=== PATIENT | female | born 1955 | race Two or more races ===

== ENCOUNTER 2024-08-30 13:39 | Emergency (ER) | payer OTHER ==
[~2024-08-30] VITALS: Ht 149.9 cm; Wt 90.7 kg
[~2024-08-30 13:39] MED LIST: METHOCARBAMOL500 MG PO; NABUMETONE750 MG PO
[2024-08-30] MEDS ORDERED: SYNTHROID112 MCG PO (14:09)
[2024-08-30] MEDS ORDERED: LOSARTAN-HCTZ1 EACH PO (14:10)
[2024-08-30] MEDS ORDERED: LIPITOR20 MG PO (14:11)
[2024-08-30] MEDS ORDERED: KETOROLAC TROMETHAMINE 15 MG VIAL IM STA (14:37)
[2024-08-30] MEDS ORDERED: ACETAMINOPHEN 500 MG GEL..CAP PO STA (14:37)
[2024-08-30 15:28] LABS: HEMATOCRIT 36.8 % (36.0-45.00); HEMOGLOBIN 12.3 g/dL (12.0-15.00); MEAN CELL VOLUME 91.7 fL (80.00-100.00); MEAN CORPUSCULAR HEMOGLOBIN 30.7 pg (27.00-32.0); MEAN CORPUSCULAR HGB CONC 33.5 g/dl (32.0-36.0); PLATELET COUNT 209 K/uL (150-450); RED BLOOD COUNT 4.01 M/uL (4.00-6.00); RED CELL DISTRIBUTION WIDTH 13.8 % (11.5-14.5)
[2024-08-30 16:03] LABS: ALBUMIN 3.8 gm/dL (3.4-5.0); BILIRUBIN TOTAL 0.67 mg/dL (0.3-1.2); CALCIUM 8.8 mg/dL (8.5-10.1); CREATININE SERUM 0.92 mg/dL (0.55-1.02); GFR 61.07; GLOBULINA 4.2 G/DL (2.4-3.5); POTASSIUM 3.83 mEq/L (3.5-5.1)
[2024-08-30] MEDS ORDERED: OSEL75CA PO (17:31)
[2024-08-30] MEDS ORDERED: TUSNEL LIQUID178 ML PO (17:31)
== END 2024-08-30 17:40 | disposition home or self-care (01) ==
LOC: ER 13:41
PROVIDERS: General Practice
DX: J10.1 Influenza due to other identified influenza virus with other respiratory manifestations (principal); Z20.822 Contact with and (suspected) exposure to COVID-19; I10 Essential (primary) hypertension

== ENCOUNTER 2024-09-10 17:42 | Inpatient (IN) | payer OTHER ==
[~2024-09-10] VITALS: Ht 162.6 cm; Wt 90.7 kg
[~2024-09-10 17:42] MED LIST changes: +LIPITOR20 MG PO; +LOSARTAN-HCTZ1 EACH PO; +OSEL75CA PO; +SYNTHROID112 MCG PO; +TUSNEL LIQUID178 ML PO
[2024-09-10] MEDS ORDERED: FAMOTIDINE/PF 20 MG in 0.9 % SODIUM CHLORIDE 8 ML IV PUSH STA (19:29)
[2024-09-10] MEDS ORDERED: ONDANSETRON HCL 2 MG/ML VIAL IV ONE (19:30)
[2024-09-10] MEDS ORDERED: 0.9 % SODIUM CHLORIDE 1,000 ML IV SCH (19:30)
[2024-09-10] MEDS ORDERED: KETOROLAC TROMETHAMINE 30 MG VIAL IV ONE (19:30)
[2024-09-10 20:00] LABS: HEMATOCRIT 40.3 % (36.0-45.00); HEMOGLOBIN 13.3 g/dL (12.0-15.00); MEAN CELL VOLUME 92.8 fL (80.00-100.00); MEAN CORPUSCULAR HEMOGLOBIN 30.5 pg (27.00-32.0); MEAN CORPUSCULAR HGB CONC 32.9 g/dl (32.0-36.0); PLATELET COUNT 260 K/uL (150-450); RED BLOOD COUNT 4.34 M/uL (4.00-6.00)
[2024-09-10 20:20] LABS: ALBUMIN 3.9 gm/dL (3.4-5.0); ALKALINE PHOSPHATASE 176 U/L (50-136); ALT/SGPT 82 U/L (12-78); ANION GAP 8 (10.0-20.0); AST/SGOT 121 U/L (15-37); BILIRUBIN,CONJUGATED 1.65 mg/dL (0.0-0.2); BILIRUBIN,UNCONJUGATED 0.65 mg/dL (0.0-0.6); BLOOD UREA NITROGEN 10 mg/dL (7-18); BUN CREA RATIO 10 (7.0-25.0); CALCIUM 8.6 mg/dL (8.5-10.1); CARBON DIOXIDE 28 mEq/L (21-32); CHLORIDE 110 mmol/L (98-107); GFR 55.47; GLUCOSE FASTING 173 mg/dL (65-100); OSMOLALITY SERUM 286 MOSM/KG (275-295); SODIUM 142 mmol/L (136-145); TOTAL PROTEIN 7.9 gm/dL (6.4-8.2)
[2024-09-10 20:47] LABS: LIPASE > 5000 U/L (13-75)
[2024-09-10 20:48] LABS: AMYLASE > 1302 U/L (25-115)
[2024-09-10] MEDS ORDERED: ACETAMINOPHEN 500 MG GEL..CAP PO PRN (23:00)
[2024-09-11] MEDS ORDERED: PIPERACILLIN/TAZOBACTAM SODIUM 3.375 GM in DEXTROSE 5 % IN WATER 100 ML IV SCH
[2024-09-11 00:49] VITALS: BP 169/70
[2024-09-11 01:43] LABS: INR 1.59; PARTIAL THROMBOPLASTIN TIME 29.6 SECONDS (22.0-34.0)
[2024-09-11 01:46] LABS: PROTHROMBIN TIME 16.7 SECONDS (9.0-11.5)
[2024-09-11 01:50] LABS: URINE APPEARANCE Clear; URINE BILIRRUBIN Negative (NEGATIVE); URINE BLOOD Negative; URINE COLOR Yellow; URINE GLUCOSE Negative (NEGATIVE); URINE KETONE Trace (NEGATIVE); URINE LEUKOCYTE Negative; URINE NITRATE Negative; URINE PROTEIN Negative (NEGATIVE)
[2024-09-11 01:54] LABS: URINE BACTERIA 321.2 uL (0.0-1933); URINE EPITHELIAL CELLS 7.2 uL (0.0-38.8); URINE RBC 7.3 uL (0.0-20.8); URINE WBC 3.2 uL (0.0-23.2)
[2024-09-11 04:11] LABS: ABG PH 7.418 (7.35-7.45); ABG PO2 86.9 mmHg (80-100); ABG pCO2 40.2 mmHg (35-45); BASE EXCESS 0.8 mmol/l; BICARBONATE 25.3 mmol/l (23-25); SaO2 96.8 %; Tco2 26.6 mmol/l; allen test SATISFACTORY; puncture site RADIAL LEFT
[2024-09-11 04:12] LABS: o2 21 %
[2024-09-11] MEDS ORDERED: LEVOTHYROXINE SODIUM 112 MCG TABLET PO SCH (06:00)
[2024-09-11 07:10] LABS: AMYLASE 1034 U/L (25-115); LIPASE 2406 U/L (13-75)
[2024-09-11 07:37] VITALS: BP 149/73; O2SAT 100
[2024-09-11] MEDS ORDERED: ENOXAPARIN SODIUM 40 MG/0.4 ML SYRINGE SUBCUTANEO SCH (09:00)
[2024-09-11] MEDS ORDERED: LOSARTAN/HYDROCHLOROTHIAZIDE 1 UDTAB TABLET PO SCH (09:00)
[2024-09-11] MEDS ORDERED: MEPERIDINE HCL/PF 25 MG/ML VIAL IM PRN (09:30)
[2024-09-11 11:44] LABS: HEMATOCRIT 42.3 % (36.0-45.00); HEMOGLOBIN 13.8 g/dL (12.0-15.00); MEAN CELL VOLUME 92.6 fL (80.00-100.00); MEAN CORPUSCULAR HEMOGLOBIN 30.2 pg (27.00-32.0); MEAN CORPUSCULAR HGB CONC 32.6 g/dl (32.0-36.0); PLATELET COUNT 247 K/uL (150-450); RED BLOOD COUNT 4.56 M/uL (4.00-6.00); RED CELL DISTRIBUTION WIDTH 14.1 % (11.5-14.5)
[2024-09-11 12:13] LABS: ALBUMIN 3.5 gm/dL (3.4-5.0); BILIRUBIN TOTAL 3.54 mg/dL (0.3-1.2); CALCIUM 8.2 mg/dL (8.5-10.1); CREATININE SERUM 0.88 mg/dL (0.55-1.02); GFR 64.29; GLOBULINA 3.7 G/DL (2.4-3.5); POTASSIUM 3.38 mEq/L (3.5-5.1); TOTAL PROTEIN 7.2 gm/dL (6.4-8.2)
[2024-09-11 17:53] VITALS: BP 120/80
[2024-09-11 22:21] VITALS: BP 180/80
[2024-09-12 02:50] VITALS: BP 160/71; O2SAT 98
[2024-09-12 09:12] VITALS: BP 135/65; O2SAT 98
[2024-09-12 17:58] VITALS: BP 160/74; O2SAT 97
[2024-09-13 02:59] VITALS: BP 164/83; O2SAT 98
[2024-09-13 07:07] LABS: AMYLASE 79 U/L (25-115); LIPASE 38 U/L (13-75)
[2024-09-13 08:55] VITALS: BP 160/70; O2SAT 99
[2024-09-13] MEDS ORDERED: MEPERIDINE HCL/PF 25 MG/ML VIAL IM PRN (15:00)
[2024-09-13 18:14] VITALS: BP 193/83; O2SAT 95
[2024-09-14 03:16] VITALS: BP 160/72; O2SAT 97
[2024-09-14 08:53] VITALS: BP 167/77; O2SAT 99
[2024-09-14] MEDS ORDERED: FAMOTIDINE/PF 20 MG/2 ML VIAL IV SCH (09:00)
[2024-09-14] MEDS ORDERED: AMLODIPINE BESYLATE 5 MG TABLET PO SCH (09:00)
[2024-09-14 14:46] LABS: HEMATOCRIT 38.7 % (36.0-45.00); HEMOGLOBIN 12.9 g/dL (12.0-15.00); MEAN CELL VOLUME 92.3 fL (80.00-100.00); MEAN CORPUSCULAR HEMOGLOBIN 30.8 pg (27.00-32.0); MEAN CORPUSCULAR HGB CONC 33.4 g/dl (32.0-36.0); PLATELET COUNT 229 K/uL (150-450); RED BLOOD COUNT 4.19 M/uL (4.00-6.00); RED CELL DISTRIBUTION WIDTH 13.6 % (11.5-14.5)
[2024-09-14 15:21] LABS: ALBUMIN 3.3 gm/dL (3.4-5.0); BILIRUBIN TOTAL 2.57 mg/dL (0.3-1.2); CALCIUM 8.7 mg/dL (8.5-10.1); CHOL HDL RATIO 3.4 (0-5.0); CREATININE SERUM 0.71 mg/dL (0.55-1.02); GFR 82.36; GLOBULINA 3.9 G/DL (2.4-3.5); POTASSIUM 3.21 mEq/L (3.5-5.1); TOTAL PROTEIN 7.2 gm/dL (6.4-8.2)
[2024-09-14] MEDS ORDERED: PHYTONADIONE 10 MG/ML AMPUL IV NR (16:00)
[2024-09-14] MEDS ORDERED: POTASSIUM CHLORIDE IN WATER 40 MEQ/100 ML PIGGYBAG IV NR (16:00)
[2024-09-14 17:00] VITALS: BP 169/83; O2SAT 98
[2024-09-14] MEDS ORDERED: AMINO ACIDS 4.25 %/DEXTROSE 5% 1,000 ML PERIFERAL SCH (17:00)
[2024-09-15 02:43] VITALS: BP 143/69; O2SAT 99
[2024-09-15 08:28] LABS: CALCIUM 8.2 mg/dL (8.5-10.1); CHOL HDL RATIO 3.6 (0-5.0); CREATININE SERUM 0.71 mg/dL (0.55-1.02); GFR 82.36
[2024-09-15 08:48] LABS: INR 1.05; PARTIAL THROMBOPLASTIN TIME 28.9 SECONDS (22.0-34.0); PROTHROMBIN TIME 11.4 SECONDS (9.0-11.5)
[2024-09-15 10:01] VITALS: BP 146/53; O2SAT 98
[2024-09-15 10:40] LABS: POTASSIUM 2.89 mEq/L (3.5-5.1)
[2024-09-15] MEDS ORDERED: MORPHINE SULFATE 4 MG/ML VIAL IV ONE ×2 (11:50→12:20)
[2024-09-15] MEDS ORDERED: POTASSIUM CHLORIDE 20MEQ/100ML H2O PB IV NR (16:00)
[2024-09-15 19:33] VITALS: BP 127/72
[2024-09-16 01:48] VITALS: BP 158/68; O2SAT 99
[2024-09-16 07:40] LABS: CALCIUM 7.9 mg/dL (8.5-10.1); CREATININE SERUM 0.67 mg/dL (0.55-1.02); GFR 88.06; POTASSIUM 3.08 mEq/L (3.5-5.1)
[2024-09-16 08:00] VITALS: BP 138/62; O2SAT 96
[2024-09-16] MEDS ORDERED: POTASSIUM CHLORIDE 20MEQ/100ML H2O PB IV NR (16:00)
[2024-09-16 19:08] VITALS: BP 180/69
[2024-09-17 01:13] VITALS: BP 143/65; O2SAT 97
[2024-09-17 06:22] LABS: HEMOGLOBIN 10.9 g/dL (12.0-15.00); MEAN CELL VOLUME 91.5 fL (80.00-100.00); MEAN CORPUSCULAR HEMOGLOBIN 31.1 pg (27.00-32.0); PLATELET COUNT 237 K/uL (150-450)
[2024-09-17 06:43] LABS: INR 1.03; PARTIAL THROMBOPLASTIN TIME 25.1 SECONDS (22.0-34.0); PROTHROMBIN TIME 11.2 SECONDS (9.0-11.5)
[2024-09-17 07:02] LABS: ALBUMIN 2.5 gm/dL (3.4-5.0); BILIRUBIN TOTAL 1.73 mg/dL (0.3-1.2); BILIRUBIN,CONJUGATED 1.26 mg/dL (0.0-0.2); BILIRUBIN,UNCONJUGATED 0.47 mg/dL (0.0-0.6); CALCIUM 8.2 mg/dL (8.5-10.1); CHOL HDL RATIO 3.8 (0-5.0); CREATININE SERUM 0.67 mg/dL (0.55-1.02); GFR 88.06; GLOBULINA 3.4 G/DL (2.4-3.5); MAGNESIUM 1.6 mg/dL (1.8-2.4); TOTAL PROTEIN 5.9 gm/dL (6.4-8.2)
[2024-09-17 07:42] LABS: POTASSIUM 2.83 mEq/L (3.5-5.1)
[2024-09-17 09:16] VITALS: BP 154/66; O2SAT 98
[2024-09-17] MEDS ORDERED: POTASSIUM CHLORIDE 20MEQ/100ML H2O PB IV NR (10:00)
[2024-09-17 18:22] VITALS: BP 173/77
[2024-09-18 01:53] VITALS: BP 150/72; O2SAT 96
[2024-09-18 08:02] VITALS: BP 135/68; O2SAT 100
[2024-09-18 12:35] LABS: CALCIUM 8.9 mg/dL (8.5-10.1); CREATININE SERUM 0.84 mg/dL (0.55-1.02); GFR 67.83; POTASSIUM 3.03 mEq/L (3.5-5.1)
[2024-09-18 17:52] VITALS: BP 150/71
== END 2024-09-18 19:58 | disposition home or self-care (01) | DRG 414 ==
LOC: ER 17:44 → SEC-K 22:58 → MEDJ 22:58 → SURG 09-11 01:39 → SEC-K 09-11 01:44 → O/R 09-11 14:27 → SEC-K 09-11 14:28 → MEDJ 09-11 15:15
PROVIDERS: General Practice; Internal Medicine; Surgery; ADMIT Internal Medicine; ATTEND Internal Medicine
PROC: BW40ZZZ Ultrasonography of Abdomen (ICD-10-PCS; 2024-09-10)
PROC: BF37ZZZ Magnetic Resonance Imaging (MRI) of Pancreas (ICD-10-PCS; 2024-09-10)
PROC: 0FT40ZZ Resection of Gallbladder, Open Approach (ICD-10-PCS; principal; 2024-09-15 08:00)
PROC: 02HV33Z Insertion of Infusion Device into Superior Vena Cava, Percutaneous Approach (ICD-10-PCS; 2024-09-16)
PROC: 3E0436Z Introduction of Nutritional Substance into Central Vein, Percutaneous Approach (ICD-10-PCS; 2024-09-16)
DX: K80.10 Calculus of gallbladder with chronic cholecystitis without obstruction (principal); K85.10 Biliary acute pancreatitis without necrosis or infection; E87.6 Hypokalemia; R74.01 Elevation of levels of liver transaminase levels; I10 Essential (primary) hypertension; E03.9 Hypothyroidism, unspecified; E78.5 Hyperlipidemia, unspecified

== ENCOUNTER 2025-08-29 12:26 | Outpatient (CLI) | payer OTHER | END 2025-08-29 12:30 | disposition home or self-care (01) | LOC: MAMO-SONO 12:26 | PROVIDERS: ATTEND Internal Medicine | DX: D64.9 Anemia, unspecified (principal); Z12.31 Encounter for screening mammogram for malignant neoplasm of breast ==

== ENCOUNTER 2025-09-20 08:38 | Outpatient (CLI) | payer OTHER ==
[2025-09-20 09:37] LABS: BASO % 0.9 % (0.1-1.2); EOS # 0.13 (0.04-0.54); EOS % 1.8 % (0.7-7.0); LYMPH # 2.08 (1.18-3.74); LYMPH % 29.5 % (19.3-53.1); MEAN PLATELET VOLUME 11.00 fl (9.4-12.4); MONO # 0.72 (0.24-0.82); MONO % 10.2 % (4.7-12.5); NEUT # 4.03 (1.56-6.13); NEUT % 57.3 % (34.0-71.1); RED CELL DISTRIBUTION WIDTH 13.6 % (11.6-14.4)
[2025-09-20 09:38] LABS: URINE APPEARANCE Clear; URINE BILIRRUBIN Negative (NEGATIVE); URINE BLOOD Negative; URINE COLOR Yellow; URINE GLUCOSE Negative (NEGATIVE); URINE KETONE Trace (NEGATIVE); URINE LEUKOCYTE Trace; URINE NITRATE Negative; URINE PROTEIN Negative (NEGATIVE); URINE UROBILINOGEN 1.0 E.U./dl
[2025-09-20 09:43] LABS: ERYTHROCYTE SEDIMENTATION RATE 16 mm/hr (0-30); URINE BACTERIA 3301.3 uL (0.0-1933); URINE EPITHELIAL CELLS 133.3 uL (0.0-38.8); URINE RBC 6.0 uL (0.0-20.8); URINE WBC 24.6 uL (0.0-23.2)
[2025-09-20 10:47] LABS: ALT/SGPT 31.0 U/L (12-78); AST/SGOT 28.0 U/L (15-37); BILIRUBIN TOTAL 0.64 mg/dL (0.3-1.2); BUN CREA RATIO 17.0 (7.0-25.0); CREATININE SERUM 0.92 mg/dL (0.55-1.02); GFR 60.89; GLOBULINA 3.5 G/DL (2.4-3.5); GLUCOSE FASTING 97.0 mg/dL (65-100); OSMOLALITY SERUM 282.0 MOSM/KG (275-295); T4 FREE 1.37 NG/ML (0.76-1.46)
[2025-09-20 10:51] LABS: TYPE CELLS SQUAMOUS; URINE CAST 0.70 uL (0.0-1.40)
[2025-09-20 10:56] LABS: TSH 0.185 uIU/mL (0.358-3.74)
== END 2025-09-20 08:45 | disposition home or self-care (01) ==
LOC: LAB 08:38
PROVIDERS: ATTEND Internal Medicine
DX: I10 Essential (primary) hypertension (principal); N39.0 Urinary tract infection, site not specified; E06.9 Thyroiditis, unspecified; M15.9 Polyosteoarthritis, unspecified; R10.84 Generalized abdominal pain

== ENCOUNTER 2025-09-23 09:45 | Outpatient (CLI) | payer OTHER | END 2025-09-23 10:05 | disposition home or self-care (01) | LOC: TOM 09:45 | PROVIDERS: ATTEND Internal Medicine | DX: R10.84 Generalized abdominal pain (principal) | CPT/HCPCS: 74177; Q9965 ==